=== PATIENT | female | born 1940 | race Caucasian/White ===

== ENCOUNTER → 2017-04-30 | Outpatient (CLI) | payer MEDICARE, BC ==
[~2017-04-30] MED LIST: CALCIUM W/VITAM1 TAB PO; CENTRUM SILVER1 TA1 PO; CITALOPRAM10 MG PO; HCTZ 25MG25 MG PO; KLOR-CON M2020 MEQ PO; NORCO 325 MG-51 TAB PO; OMEGA-31000 MG PO
== END ==
LOC: MC.RAD 15:34
DX: Z12.31 Encounter for screening mammogram for malignant neoplasm of breast (principal)

== ENCOUNTER → 2019-07-29 | Outpatient (CLI) | payer MEDICARE, BC | LOC: COL.RAD 10:47 | DX: Z01.812 Encounter for preprocedural laboratory examination (principal); K31.89 Other diseases of stomach and duodenum; M41.86 Other forms of scoliosis, lumbar region; M47.816 Spondylosis without myelopathy or radiculopathy, lumbar region | CPT/HCPCS: Q9967 ==

== ENCOUNTER → 2020-03-24 | Outpatient (CLI) | payer MEDICARE, BC | LOC: COL.VAS 03-21 09:00 | DX: I95.9 Hypotension, unspecified (principal); I08.1 Rheumatic disorders of both mitral and tricuspid valves; I31.3 Pericardial effusion (noninflammatory); R93.2 Abnormal findings on diagnostic imaging of liver and biliary tract ==

== ENCOUNTER → 2020-04-07 | Outpatient (CLI) | payer MEDICARE, BC | LOC: COL.RAD 09:22 | DX: Z01.812 Encounter for preprocedural laboratory examination (principal); K91.5 Postcholecystectomy syndrome; Z90.49 Acquired absence of other specified parts of digestive tract; R16.0 Hepatomegaly, not elsewhere classified | CPT/HCPCS: Q9967 ==

== ENCOUNTER → 2021-09-21 | Outpatient (CLI) | payer MEDICARE, BC | LOC: COL.RAD 08:47 | DX: R10.11 Right upper quadrant pain (principal); Z90.49 Acquired absence of other specified parts of digestive tract ==